=== PATIENT | male | born 1995 | race Caucasian/White ===

== ENCOUNTER 2016-05-12 10:07 | Emergency (ER) | payer BC ==
[2016-05-12 10:18] VITALS: BP 126/87; PULSE 83; RESP 16; TEMP 98.1; O2SAT 98
[2016-05-12] MEDS ORDERED: Sodium Chloride 0.9% 1,000 ML IV STA (11:18)
--- NOTE | 2016-05-12 11:20 | ED PDOC ---
Arrival/HPI - General Chief Complaint: GI Problem Time Seen by Provider: 05/12/16 11:09 Historian: Patient - History of Present Illness Narrative History of Present Illness (Text): 05/12/16 11:19 21 year old male presents with nausea and generalized abdominal pain for the past week. Denies vomiting, diarrhea, chest pain, shortness of breath, urinary/ bowel changes, back pain, headache, vision changes, or other associated symptoms. Time/Duration: < week Symptom Onset: Gradual Symptom Course: Unchanged Modifying Factors (Text): None Associated Symptoms (Text): None Past Medical History - Provider Review Nursing Documentation Reviewed: Yes - Infectious Disease Hx of Infectious Diseases: None - Pulmonary Hx Asthma: Yes - Psychiatric Hx Substance Use: No Family/Social History - Physician Review Nursing Documentation Reviewed: Yes Family/Social History: Unknown Family HX Smoking Status: Light Smoker < 10 Cigarettes Daily Hx Alcohol Use: Yes Frequency of alcohol use: Socially Hx Substance Use: No Allergies/Home Meds Allergies/Adverse Reactions: Allergies No Known Allergies Allergy (Verified 05/12/16 10:18) Home Medications: Home Meds Medication Instructions Recorded Confirmed No Known Home Med 05/12/16 05/12/16 Review of Systems - Review of Systems Constitutional: absent: Fevers Eyes: absent: Vision Changes ENT: absent: Hearing Changes Respiratory: absent: SOB Cardiovascular: absent: Chest Pain Gastrointestinal: Abdominal Pain, Nausea. absent: Stool Changes, Diarrhea, Vomiting Genitourinary Male: absent: Dysuria, Hematuria Musculoskeletal: absent: Back Pain Skin: absent: Rash Neurological: absent: Headache Endocrine: absent: Diaphoresis Hemo/Lymphatic: absent: Easy Bleeding Psychiatric: absent: Depression Physical Exam Vital Signs Reviewed: Yes Vital Signs Temp Pulse Resp BP Pulse Ox 05/12/16 10:13 98.1 F 83 16 126/87 98 Temperature: Afebrile Blood Pressure: Normal Pulse: Regular Respiratory Rate: Normal Appearance: Positive for: Well-Appearing, Non-Toxic, Comfortable Pain Distress: None Mental Status: Positive for: Alert and Oriented X 3 - Systems Exam Head: Present: Atraumatic, Normocephalic Pupils: Present: PERRL Conjunctiva: Present: Normal Mouth: Present: Moist Mucous Membranes Pharnyx: Present: Normal. No: ERYTHEMA, EXUDATE Neck: Present: Normal Range of Motion Respiratory/Chest: Present: Clear to Auscultation, Good Air Exchange. No: Respiratory Distress, Accessory Muscle Use Cardiovascular: Present: Regular Rate and Rhythm, Normal S1, S2. No: Murmurs Abdomen: Present: Normal Bowel Sounds. No: Tenderness, Distention, Peritoneal Signs Back: Present: Normal Inspection Upper Extremity: Present: Normal Inspection. No: Cyanosis, Edema Lower Extremity: Present: Normal Inspection. No: Edema Neurological: Present: GCS=15, CN II-XII Intact, Speech Normal Skin: Present: Warm, Dry, Normal Color. No: Rashes Psychiatric: Present: Alert, Oriented x 3, Normal Insight, Normal Concentration Medical Decision Making ED Course and Treatment: Impression: 21 year old male presents to the emergency department with nausea and generalized abdominal pain since yesterday. Differential Diagnosis included but are not limited to: Nonspecific abdominal pain vs appendicitis pancreatitis vs urinary source vs constipation Plan: -- IV fluids, Pepcid, Zofran -- Labs -- Reassess and disposition Progress Notes: Patient's exam is unremarkable. After exam and orders being done, nurse notified me that the patient was refusing his workup. Spoke with patient further, and he still did not want to get any workup done and preferred to leave the hospital without any additional workup and treatment, understanding the risks explained to him, including missing abdominal pathology resulting in serious morbidity or mortality. Leaving Against Medical Advice (AMA): The patient is choosing to leave against medical advice. I have personally explained to the patient that choosing to do so may result in permanent bodily harm or . I have discussed at great length that without further evaluation and monitoring there may be unforeseen circumstances and/or deterioration causing permanent bodily harm or as a result of their choice. The patient is alert, oriented, and shows the mental capacity to make clear decisions regarding the patients health care at this time. The patient continues to wish to leave against medical advice. In light of the patients decision to leave against medical advice, patient has been instructed that he may return to the ED at any time and if choosing not do so, to follow up with primary care adalid, and the patient is aware of the importance to following up as instructed. The patient has been advised that they should return to the emergency room immediately if they change their mind at any time, or if their condition begins to change or worsen in any way. 05/12/16 12:50 Patient signed the ama form. - Medication Orders Current Medication Orders: Discontinued Medications Famotidine (Pepcid) 20 mg IVP STAT STA Stop: 05/12/16 11:18 Sodium Chloride (Sodium Chloride 0.9%) 1,000 mls @ 999 mls/hr IV .Q1H1M STA Stop: 05/12/16 12:18 Ondansetron HCl (Zofran Inj) 4 mg IVP STAT STA Stop: 05/12/16 11:19 - Scribe Statement The provider has reviewed the documentation as recorded by the Tank Ellis Provider Scribe Attestation: All medical record entries made by the Tank were at my direction and personally dictated by me. I have reviewed the chart and agree that the record accurately reflects my personal performance of the history, physical exam, medical decision making, and the department course for this patient. I have also personally directed, reviewed, and agree with the discharge instructions and disposition. Disposition/Present on Arrival - Present on Arrival Any Indicators Present on Arrival: No History of DVT/PE: No History of Uncontrolled Diabetes: No Urinary Catheter: No History of Decub. Ulcer: No History Surgical Site Infection Following: None - Disposition Have Diagnosis and Disposition been Completed?: Yes Diagnosis: Abdominal pain, Nausea Disposition: AGAINST MEDICAL ADVICE Disposition Time: 12:00 Patient Plan: Other (AMA) Patient Problems: Current Active Problems Problem Status Diagnosed Abdominal pain Acute Nausea Acute Condition: UNKNOWN Additional Instructions: You are leaving against medical advice and may return to the emergency department at any time. If you prefer not to do so, recommend following up with primary care or the medical clinic as soon as possible. Referrals: [facility] at [facility] [place] [Outside] - Follow up with primary
== END 2016-05-12 12:05 | disposition left against medical advice (07) ==
LOC: ED 10:07
DX: R10.9 Unspecified abdominal pain (principal); R11.0 Nausea

== ENCOUNTER 2016-09-19 20:15 | Emergency (ER) | payer SELFPAY ==
[2016-09-19 20:28] VITALS: RESP 16; TEMP 98.2
--- NOTE | 2016-09-19 21:08 | ED PDOC ---
Arrival/HPI - General Chief Complaint: Abnormal Skin Integrity Time Seen by Provider: 09/19/16 20:29 Historian: Patient - History of Present Illness Narrative History of Present Illness (Text): 09/19/16 21:05 A 21 year old male patient, who denies any significant past medical history, presents to the emergency department for a boil, which began 3 days ago. The patient reports the boil appeared 3 days ago and he denies any abd pain, nausea , fever, vomiting, or any other complaints at this time. Time/Duration: < week (x3 days ) Symptom Onset: Gradual Symptom Course: Unchanged Activities at Onset: Light Context: Home Past Medical History - Provider Review Nursing Documentation Reviewed: Yes - Infectious Disease Hx of Infectious Diseases: None - Pulmonary Hx Asthma: Yes - Psychiatric Hx Substance Use: No - Anesthesia Hx Anesthesia: No Family/Social History - Physician Review Nursing Documentation Reviewed: Yes Family/Social History: Unknown Family HX Smoking Status: Light Smoker < 10 Cigarettes Daily Hx Alcohol Use: Yes Frequency of alcohol use: Socially Hx Substance Use: No Allergies/Home Meds Allergies/Adverse Reactions: Allergies dust Allergy (Uncoded 09/19/16 20:29) CONGESTION Review of Systems - Review of Systems Constitutional: absent: Fevers Gastrointestinal: absent: Abdominal Pain, Nausea, Vomiting Genitourinary Male: absent: Dysuria Skin: Other (Boil on right inner thigh ) Physical Exam Vital Signs Reviewed: Yes Vital Signs Temp Pulse Resp BP Pulse Ox 09/19/16 20:25 98.2 F 72 16 124/79 99 Temperature: Afebrile Blood Pressure: Normal Pulse: Regular Respiratory Rate: Normal Appearance: Positive for: Well-Appearing, Non-Toxic, Comfortable Pain Distress: None Mental Status: Positive for: Alert and Oriented X 3 - Systems Exam Head: Present: Atraumatic, Normocephalic Abdomen: Present: Normal Bowel Sounds. No: Tenderness, Distention, Peritoneal Signs Genitourinary Male: Present: Normal External Genitalia. No: Testicle Tenderness , Penile Swelling Lower Extremity: Present: Other (4 x 2 cm boil on right inner thigh; fluctuant induration; erythematous & tender) Medical Decision Making ED Course and Treatment: 09/19/16 21:13 Impression: A 21 year old male with boil on right inner thigh. Plan: -- I&D -- Reassess and disposition Prior Visits: Notes and results from previous visits were reviewed. Patient was last seen in the emergency department on Progress Notes: Procedure: Incision & Drainage Performed by the emergency provider Indication: Abscess Location: Right inner thigh Preparation: The area was prepped and draped in the usual sterile fashion and was cleansed with chlorehexadine. Local infiltration of Lidocaine 1% was used for anesthesia. Procedure: The most fluctuant portion of the abscess was incised with a #11 scalpel. Approximately 7-8 mL of pus was obtained. Loculations were broken up. Saline was irrigated. The abscess was packed 1/4 inch packing. A dressing was applied. Post-Procedure: On exam the abscess is notably less fluctuant. The patient tolerated the procedure well, and there were no complications. 09/19/16 21:57 Patient will be d/c on abx and ibuprofen for pain. - Medication Orders Current Medication Orders: Discontinued Medications Lidocaine HCl (Lidocaine 1% (20ml)) Confirm Administered Dose 20 ml .ROUTE .[facility] Stop: 09/19/16 21:10 - PA / SPORTS ATTORNEY / Resident Statement MD/ has reviewed & agrees with the documentation as recorded. - Scribe Statement The provider has reviewed the documentation as recorded by the Scribe Veena Starr Provider Scribe Attestation: All medical record entries made by the Scribe were at my direction and personally dictated by me. I have reviewed the chart and agree that the record accurately reflects my personal performance of the history, physical exam, medical decision making, and the department course for this patient. I have also personally directed, reviewed, and agree with the discharge instructions and disposition. Disposition/Present on Arrival - Present on Arrival Any Indicators Present on Arrival: No History of DVT/PE: No History of Uncontrolled Diabetes: No Urinary Catheter: No History of Decub. Ulcer: No History Surgical Site Infection Following: None - Disposition Have Diagnosis and Disposition been Completed?: Yes Diagnosis: Abscess of right thigh Disposition: HOME/ ROUTINE Disposition Time: 21:45 Patient Plan: Discharge Condition: GOOD Discharge Instructions (ExitCare): Abscess (ED) Additional Instructions: Take the antibiotics as prescribed. Follow up with primary care or the emergency department in 2-3 days for packing removal. Ibuprofen for pain. Return to the emergency department if any new concerning symptoms. Prescriptions: Cephalexin [Keflex] 500 mg PO TID #21 cap Ibuprofen [Motrin Tab] 1 tab PO Q8H PRN #20 tab PRN Reason: Pain, Moderate (4-7) Sulfamethoxazole/Trimethoprim [Bactrim DS 800 mg-160 mg] 1 tab PO BID #14 tab Referrals: [facility] [place] [Outside] - Follow up with primary Forms: [employer] ([place])
[2016-09-19] MEDS ORDERED: Lidocaine 1% Inj (20ml) ONE (21:09)
[2016-09-19 22:28] VITALS: BP 120/68; PULSE 79; O2SAT 100
== END 2016-09-19 22:28 | disposition home or self-care (01) ==
LOC: ED 20:15
DX: L02.415 Cutaneous abscess of right lower limb (principal)

== ENCOUNTER 2016-09-23 00:37 | Emergency (ER) | payer SELFPAY ==
[2016-09-23 00:55] VITALS: BP 120/82; PULSE 61; RESP 18; TEMP 97.9; O2SAT 100
--- NOTE | 2016-09-23 01:05 | ED PDOC ---
Arrival/HPI - General Chief Complaint: Medical Clearance Time Seen by Provider: 09/23/16 00:56 Historian: Patient - History of Present Illness Narrative History of Present Illness (Text): 09/23/16 01:23 21 year old male presents to the emergency department for a packing removal placed 4 days ago. Patient had a boil on the right inner thigh and wants to remove the packing and obtain medical clearance. Patient denies any fever, chills, chest pain, shortness of breath, nausea, vomiting, diarrhea, urinary symptoms, back pain, neck pain, headache, dizziness, or any other complaints. Time/Duration: Other (yesterday) Symptom Onset: Gradual Symptom Course: Improving Context: Home Past Medical History - Provider Review Nursing Documentation Reviewed: Yes - Infectious Disease Hx of Infectious Diseases: None - Cardiac Hx Cardiac Disorders: No - Pulmonary Hx Asthma: Yes - Neurological Hx Neurological Disorder: No - HEENT Hx HEENT Disorder: No - Renal Hx Renal Disorder: No - Endocrine/Metabolic Hx Endocrine Disorders: No - Hematological/Oncological Hx Blood Disorders: No - Integumentary Hx Dermatological Disorder: No - Musculoskeletal/Rheumatological Hx Musculoskeletal Disorders: No - Gastrointestinal Hx Gastrointestinal Disorders: No - Genitourinary/Gynecological Hx Genitourinary Disorders: No - Psychiatric Hx Depression: Yes Hx Substance Use: No - Anesthesia Hx Anesthesia: No Family/Social History - Physician Review Nursing Documentation Reviewed: Yes Family/Social History: No Known Family HX Smoking Status: Light Smoker < 10 Cigarettes Daily Hx Alcohol Use: Yes Frequency of alcohol use: Socially Hx Substance Use: No Allergies/Home Meds Allergies/Adverse Reactions: Allergies dust Adverse Reaction (Uncoded 09/23/16 00:55) CONGESTION Review of Systems - Physician Review All systems were reviewed & negative as marked: Yes - Review of Systems Constitutional: absent: Fevers, Other (Chills) Respiratory: absent: SOB Cardiovascular: absent: Chest Pain Gastrointestinal: absent: Diarrhea, Nausea, Vomiting Genitourinary Male: Normal. absent: Dysuria, Frequency, Hematuria Musculoskeletal: absent: Back Pain, Neck Pain Skin: Other (Packing removal from boil on the right inner thigh) Neurological: absent: Headache, Dizziness Physical Exam Vital Signs Reviewed: Yes Vital Signs Temp Pulse Resp BP Pulse Ox 09/23/16 00:51 97.9 F 61 18 120/82 100 Temperature: Afebrile Blood Pressure: Normal Pulse: Regular Respiratory Rate: Normal Appearance: Positive for: Well-Appearing Pain Distress: None Mental Status: Positive for: Alert and Oriented X 3 - Systems Exam Head: Present: Atraumatic, Normocephalic Pupils: Present: PERRL Extroacular Muscles: Present: EOMI Conjunctiva: Present: Normal Mouth: Present: Moist Mucous Membranes Neck: Present: Normal Range of Motion Respiratory/Chest: Present: Clear to Auscultation, Good Air Exchange. No: Respiratory Distress, Accessory Muscle Use Cardiovascular: Present: Regular Rate and Rhythm, Normal S1, S2. No: Murmurs Abdomen: Present: Normal Bowel Sounds. No: Tenderness, Distention, Peritoneal Signs Back: Present: Normal Inspection Upper Extremity: Present: Normal Inspection. No: Cyanosis, Edema Lower Extremity: Present: Normal Inspection. No: Edema Neurological: Present: GCS=15, CN II-XII Intact, Speech Normal Skin: Present: Warm, Dry, Normal Color. No: Rashes Psychiatric: Present: Alert, Oriented x 3, Normal Insight, Normal Concentration Medical Decision Making ED Course and Treatment: 09/23/16 01:16 Impression: 21 year old male presents for packing removal of a boil on the right inner thigh. Plan: -- Ultram -- Reassess and disposition Prior Visits: Notes and results from previous visits were reviewed. On 09/19/2016 patient came in complaining of a boil. Progress Notes: - Medication Orders Current Medication Orders: Discontinued Medications Tramadol HCl (Ultram) 50 mg PO STAT STA Stop: 09/23/16 01:05 Last Admin: 09/23/16 01:12 Dose: 50 mg - Scribe Statement The provider has reviewed the documentation as recorded by the Niraliibivette Acuna All medical record entries made by the Tank were at my direction and personally dictated by me. I have reviewed the chart and agree that the record accurately reflects my personal performance of the history, physical exam, medical decision making, and the department course for this patient. I have also personally directed, reviewed, and agree with the discharge instructions and disposition. Disposition/Present on Arrival - Present on Arrival Any Indicators Present on Arrival: No History of DVT/PE: No History of Uncontrolled Diabetes: No Urinary Catheter: No History of Decub. Ulcer: No History Surgical Site Infection Following: None - Disposition Have Diagnosis and Disposition been Completed?: Yes Diagnosis: Abscess of groin, right Disposition: HOME/ ROUTINE Disposition Time: 01:15 Condition: GOOD Discharge Instructions (ExitCare): Chronic Wound Care (ED) Referrals: Bruce Lozano, [Non-Staff] - Follow up with primary Forms: [employer] ? (Czech), WORK NOTE
== END 2016-09-23 01:14 | disposition home or self-care (01) ==
LOC: ED 00:37
DX: L02.214 Cutaneous abscess of groin (principal)